=== PATIENT | female | born 1960 | race Caucasian/White ===

== ENCOUNTER → 2019-10-29 16:04 | Outpatient (BNVA) | payer MEDICARE, SELFPAY | PROVIDERS: Family Provider Family Medicine; PCP Family Medicine; Visit Provider Specialist | DX: M25.551 Pain in right hip (principal); G89.29 Other chronic pain | CPT/HCPCS: 73502 ==

== ENCOUNTER → 2019-12-29 11:04 | Outpatient (BNVA) | payer MEDICARE, SELFPAY | PROVIDERS: Family Provider Family Medicine; PCP Family Medicine; Visit Provider Specialist | DX: G35 Multiple sclerosis (principal); M81.0 Age-related osteoporosis without current pathological fracture | CPT/HCPCS: 99214 ==

== ENCOUNTER → 2020-06-16 11:23 | Outpatient (BNVA) | payer MEDICARE, SELFPAY | PROVIDERS: Family Provider Family Medicine; PCP Family Medicine; Visit Provider Podiatrist Foot & Ankle Surgery | DX: S99.921A Unspecified injury of right foot, initial encounter (principal); M21.611 Bunion of right foot; M79.671 Pain in right foot; G35 Multiple sclerosis | CPT/HCPCS: 73630 ==

== ENCOUNTER 2020-06-16 14:25 | Outpatient (CLI) | payer MEDICARE, SELFPAY | END 2020-06-16 14:26 | disposition home or self-care (01) | LOC: SPT 14:25 | PROVIDERS: Family Provider Family Medicine; PCP Family Medicine; Visit Provider Podiatrist Foot & Ankle Surgery | DX: M21.611 Bunion of right foot (principal); M79.671 Pain in right foot; G35 Multiple sclerosis | CPT/HCPCS: L4361 ==

== ENCOUNTER → 2020-06-28 09:46 | Outpatient (BNVA) | payer MEDICARE, SELFPAY | PROVIDERS: Family Provider Family Medicine; PCP Family Medicine; Visit Provider Specialist | DX: G35 Multiple sclerosis (principal); M81.0 Age-related osteoporosis without current pathological fracture | CPT/HCPCS: 99214 ==

== ENCOUNTER → 2021-01-19 10:46 | Outpatient (BNVA) | payer MEDICARE, SELFPAY | PROVIDERS: Family Provider Family Medicine; PCP Family Medicine; Visit Provider Specialist | DX: G35 Multiple sclerosis (principal) | CPT/HCPCS: 99213 ==

== ENCOUNTER 2021-02-17 11:52 | Outpatient (CLI) | payer MEDICARE, SELFPAY ==
--- NOTE | 2021-02-17 12:00 | MM_ITS ---
WS: [id number] BILATERAL DIGITAL SCREENING MAMMOGRAPHY WITH CAD CLINICAL INFORMATION: SCREENING HISTORY: Screening mammogram. No current complaints. COMPARISON: TECHNIQUE: Bilateral CC and MLO views. FINDINGS: Scattered fibroglandular densities bilaterally. No suspicious focal mass, asymmetry, calcifications, or architectural distortion. No evidence of malignancy. Punctate and lucent centered calcifications. Vascular calcification. MM/[place] [id number] IMPRESSION: BI-RADS: 2-Benign FOLLOW UP: 1 Year Follow-up Recommend return to annual screening mammography.
== END 2021-02-17 11:53 | disposition home or self-care (01) ==
LOC: RADSHAW 11:59
PROVIDERS: PCP Family Medicine; Visit Provider Nurse Practitioner
DX: Z12.31 Encounter for screening mammogram for malignant neoplasm of breast (principal)
CPT/HCPCS: 77067

== ENCOUNTER → 2021-10-28 14:51 | Outpatient (BNVA) | payer MEDICARE, SELFPAY | PROVIDERS: PCP Family Medicine; Visit Provider Obstetrics & Gynecology | DX: N81.4 Uterovaginal prolapse, unspecified (principal); N39.3 Stress incontinence (female) (male); Z20.822 Contact with and (suspected) exposure to COVID-19 | CPT/HCPCS: 87635 ==

== ENCOUNTER 2021-11-01 12:55 | Observation (INO) | payer MEDICARE, SELFPAY ==
[2021-10-31 15:44] VITALS: BMI 17.2
[2021-11-01] VITALS (27 sets, daily range): BP systolic 77–149; BP diastolic 42–102; PULSE 65–94; RESP 13–23; TEMP 36.5–36.8; O2SAT 92–100
[2021-11-01] MEDS: acetaminophen 1,000 MG/100 ML PIGGYBACK 400 MG IV (06:39)
[2021-11-01] MEDS: sodium chloride 0.9% 1,000 ML 30 ML IV (06:40)
[2021-11-01] MEDS: phenazopyridine 100 mg Tablet 200 MG PO (06:44)
[2021-11-01] MEDS: CELEcoxib 200 mg Capsule 400 MG PO (06:45)
[2021-11-01] MEDS: gabapentin 300 mg Capsule PO (06:45)
[2021-11-01] MEDS: scopolamine 1.5 Patch 1 PATCH TRANSDERMA (06:46)
[2021-11-01] MEDS: ketorolac 30 mg/mL INJ IVP ×3 (06:54→23:21)
--- NOTE | 2021-11-01 06:54 | ANES.PREANE2 ---
Pre-Anesthetic Assessment Height/Weight: Height 1.68 m Weight 48.534 kg Temp Pulse Resp BP Pulse Ox 97.7 F 72 16 118/68 98 11/01/21 06:15 11/01/21 06:15 11/01/21 06:15 11/01/21 06:15 11/01/21 06:15 Preop Diagnosis: uterine prolapse, cystocele, stress incontinence Operation Date: 11/01/21 07:00 Proposed Procedures p Laparoscopic Assist Vaginal Hysterectomy [id number]/n81.4/n81.10/n39.3(Not Applicable) - Deann Martinez MD s Laparoscopic Salpingo Oophorectomy(Bilateral) - Deann Martinez MD s Anterior Repair(Not Applicable) - Deann Martinez MD s possible sling(Not Applicable) - Deann Martinez MD Was Beta Yuridia taken within 24 hours: N/A Was Clonidine taken within 24 hours: N/A Last intake: Intake Last Liquid Date 10/31/21 Last Liquid Time 18:00 Last Solid Date 10/31/21 Last Solid Time 18:00 Social No alcohol and No tobacco Exam alert, oriented x 3, clear to auscultation bilaterally and regular rate & rhythm Airway Submandibular: within normal limits Cervical ROM: within normal limits Mallampati: Class III Dentition: chipped and false Comments: Comments: False uppers, missing multiple lowers. History/ROS No significant history except as noted Pulmonary None reported METS < 4 Uses walker d/t MS CV/HEM Anemia None reported Hepatic None reported GI None reported Metabolic None reported Musc/skel MS Weak in all extremities Blunted affect Uses walker Motor weakness b/l legs requiring assist device (walker) Anesthetic Plan Anesthesia: Anesthesia Evaluation and General Other: We discussed risk and benefits of general anesthesia including PONV, sore throat (sometimes severe), corneal abrasion, positioning and peripheral nerve injuries, life threatening allergic reaction, post operative ICU admission requiring prolonged intubation, stroke, heart attack, , and rare incidences of recall. Patient consents to proceed with general anesthesia. Risk of > 500 ml blood loss (7ml/kg in children): No Medications/Allergies Home Medications Medication Instructions Recorded Confirmed Last Taken Type alendronate 70 mg tablet (Fosamax) 70 mg PO ONCE 10/29/19 11/01/21 10/01/21 History modafinil 200 mg tablet 200 mg PO QAM #90 tab 05/26/20 11/01/21 10/31/21 Rx POV/3 Wheeled Scooter #1 ea 06/29/20 10/28/21 Unknown Rx citalopram 40 mg tablet See Rx Instructions .ROUTE 01/19/21 11/01/21 10/31/21 Rx .COMPLEX #90 tab tolterodine 2 mg tablet 2 mg PO QDAY PRN #30 tab 01/19/21 11/01/21 11/01/21 Rx baclofen 10 mg tablet See Rx Instructions .ROUTE 05/18/21 11/01/21 10/31/21 Rx .COMPLEX #360 tab dalfampridine 10 mg 10 mg PO BID 30 Days #60 tab 10/28/21 11/01/21 10/31/21 Rx tablet,extended release,12 hr dimethyl fumarate 240 mg 240 mg PO BID 30 Days #60 cap 10/28/21 11/01/21 10/31/21 Rx capsule,delayed release (Tecfidera) Allergies Allergy/AdvReac Type Severity Reaction Status Date / Time Sulfa (Sulfonamide Allergy hives Verified 10/28/21 14:50 Antibiotics) Current Medications Generic Name Dose Route Start Last Admin Trade Name Freq PRN Reason Stop Dose Admin Sodium Chloride 1,000 mls @ 30 mls/hr 11/01/21 06:15 11/01/21 06:40 Sodium Chloride 0.9% IV 11/02/21 06:14 30 mls/hr .Q24H SHELBY Administration PFSH Anesthesia Medical History (Updated 10/31/21 @ 12:22 by Deann Martinez MD) Broken back History of hip fracture Multiple sclerosis Family History Mother Breast cancer Other Thyroid disease Denies family history of Diabetes CAD (coronary artery disease) Clotting disorder Chronic kidney disease (CKD) Bleeding disorder Hypertension Stroke Data Anesthesia : 11/01/21 06:39 11/01/21 06:39 Cardiac Studies: No Data to Display
--- NOTE | 2021-11-01 07:02 | W.PM.OPSUD ---
Surgery/Procedure H&P Update DATE OF PROCEDURE: November 01, 2021 DATE H&P PERFORMED: 10/28/21 H&P UPDATE INFORMATION: I have reviewed H&P completed within last 30 days, I have examined patient prior to procedure and No changes to prior documentation PREOP DIAGNOSIS: uterine prolapse, cystocele, stress incontinence PLANNED PROCEDURE: Operation Date: 11/01/21 07:00 Proposed Procedures p Laparoscopic Assist Vaginal Hysterectomy [id number]/n81.10/n39.3(Not Applicable) - Deann Martinez MD s Laparoscopic Salpingo Oophorectomy(Bilateral) - Deann Martinez MD s Anterior Repair(Not Applicable) - Deann Martinez MD s possible sling(Not Applicable) - Deann Martinez MD Related Problem List Diagnoses (1) Stress incontinence: (2) Uterine prolapse: (3) Cystocele:
[2021-11-01 07:06] LABS: Basophils # 0.1 10^3/uL (0.0-0.1); Basophils % 1.2 %; Eosinophils # 0.1 10^3/uL (0.0-0.8); Eosinophils % 2.1 %; Hematocrit 41.9 % (37.0-47.0); Hemoglobin 14.3 g/dL (11.5-15.3); Lymphocytes # 0.9 10^3/uL (0.8-4.8); Lymphocytes % 21.9 %; Mean Corpuscular HGB Conc 34.1 g/dL (30.0-36.0); Mean Corpuscular Hemoglobin 32.1 pg (28.0-34.0); Mean Corpuscular Volume 93.9 fl (81-99); Mean Platelet Volume 9.6 fL (7.4-10.4); Monocytes # 0.4 10^3/uL (0.2-0.9); Monocytes % 10.5 %; Neutrophils # 2.69 10^3/uL (1.8-7.7); Neutrophils % 63.8 %; Nucleated Red Blood Cells % 0 %; Platelet Count 259 10^3/cmm (130-400); Red Blood Count 4.46 10^6/uL (4.1-5.3); Red Cell Distribution Width 12.4 % (12.1-15.1); White Blood Count 4.2 10^3/uL (4.0-10.0)
[2021-11-01 07:26] LABS: Alanine Aminotransferase 8 U/L (0-33); Albumin Level 4.3 g/dL (3.5-5.2); Alkaline Phosphatase 56 IU/L (35-105); Anion Gap 12.4 (5-19); Aspartate Amino Transferase 16 U/L (0-32); Blood Urea Nitrogen 8 mg/dL (8-23); Calcium 8.7 mg/dL (8.5-10.5); Carbon Dioxide 28 mmol/L (22-29); Chloride 102 mmol/L (98-107); Creatinine Clr Calc Pharmacy 150.8823; Globulin 2.3 g/dL (1.3-4.6); Glomerular Filtration Rate 226.2 mL/min (90-130); Glucose 71 mg/dL (65-115); Osmolality Calculated 285 mOsm/kg (285-295); Potassium 3.4 mmol/L (3.5-5.1); Sodium 139 mmol/L (136-145); Total Bilirubin 0.2 mg/dL (0.15-1.2); Total Protein 6.6 g/dL (6.6-8.7)
[2021-11-01] MEDS: vasopressin 20 unit/mL INJ 4 UNIT INJECTION (08:52)
--- NOTE | 2021-11-01 10:48 | PM.OP ---
Operative Report Date of procedure: November 01, 2021 Pre-op diagnosis: Preop Diagnosis uterine prolapse, cystocele, stress incontinence Post-op diagnosis: same Post-op findings: small uterus, normal appearing tubes and ovaries Procedure done: laparoscopic assisted vaginal hysterectomy with bilateral salpingoophorectomy and mid urethral sling placement Specimens removed/disposition: uterus, bilateral fallopian tubes and ovaries to pathology Surgeon: Deann Martinez Anesthesia: General Estimated blood loss (mL): 100 IV fluids (mL): 1,400 Urine output (mL): 300 Complications: none Brief History: The patient presented for significant pelvic pain and stress incontinence. She was found to have uterine prolapse. She opted to have surgery to relieve her symptoms Procedure: The patient was taken to the operating room where general anesthesia was administered and found to be adequate. She was prepped and draped in the normal sterile fashion in the dorsal lithotomy position in [facility]. A Falcon catheter was placed. A weighted speculum was placed into the vagina and the anterior lip of the cervix was grasped with a single tooth tenaculum. The cervix was atrophic and the pediatric dilators were used to dilate her cervix. As I used the 3 mm dilator, I felt it perforate the uterus. No manipulator was used as the uterus was tiny and wouldn't have been large enough to use the manipulator. A sponge stick was placed instead. The weighted speculum was removed. The gloves were changed and attention was turned to the abdomen. A 5 mm infraumbilical incision was made. Using a 5 mm port with the camera, the port was placed into the abdomen. The abdomen was insufflated. Two low, lateral 5 mm ports were placed on the left and right under direct visualization from the camera. The right tube was grasped and elevated. Using the laparoscopic cautery, the infundibulopelvic ligament was cauterized lateral to the tube and ovary. This was performed the same way on the left. The uteroovarian ligaments as well as the round ligaments were ligated. Attention was then turned to the vaginal portion of the procedure. The weighted speculum was placed into the vagina. The sponge stick was removed. The single tooth tenaculum was removed and replaced with the tata's tenaculum. 10 mL of dilute Pitressin was injected at the vesicovaginal junction. A circumferential incision was made at the vesicovaginal junction and the vaginal mucosa reflected cephalad. The posterior peritoneum was entered sharply with the Metzenbaum scissors and the long weighted speculum replaced. Using the Renetta clamps the uterosacral ligaments were clamped cut and suture-ligated. The anterior peritoneum was entered sharply with the metzenbaum scissors. Then sequentially the uterine arteries and cardinal ligaments were clamped cut and suture-ligated. A single-tooth tenaculum was used to deliver the uterus. The remaining segement of the utero-ovarian ligaments were clamped cut and suture-ligated bilaterally and the specimen was removed. There was good hemostasis with only mild bleeding from the cuff. The peritoneum was closed with a pursestring using 2-0 Vicryl. The vaginal cuff was closed with 0 Vicryl in a running locked pattern incorporating the uterosacral ligaments into the lateral aspects of the vaginal cuff. The Falcon catheter was removed and the cystoscope advanced into the bladder. The patient was given pyridium and bilateral spill was noted. There were no injuries or deficits noted in the bladder. The cystoscope was removed and the Falcon was replaced. Attention was then turned to the sling portion of the surgery. A weighted speculum was placed into the vagina and an Allis clamp was placed approximately 2 cm below the urethra and another placed approximately 3 cm distal from that. An incision was made between the 2. 10 ml of sterile saline was used to hydrodissect the area. The tissue was sharply and bluntly dissected along the pubic ramus bilaterally. The sling was placed on the left first by going through the incision and attaching the sling to the obturator foramen membrane. The right side was performed in a similar fashion, placing the applicator through the incision and attaching to the obturator foramen membrane. The Falcon catheter was removed and the cystoscope advanced into the bladder. There was no mesh noted to be in the bladder. The sling was tightened until it was mid urethra with no tension. There was no leakage with valsalva. The tag of suture was trimmed. The incision was repaired with 2-0 Vicryl in a running locked fashion. Vaginal packing was placed. The abdominal incisions were closed with 4-O vicryl. The patient tolerated the procedure well. Sponge lap and needle counts were correct x3. She was taken to the recovery room in stable condition.
[2021-11-01] MEDS: meperidine 50 mg/mL INJ 12.5 MG IVP ×2 (11:28→11:34)
[2021-11-01] MEDS: ceFAZolin 1,000 MG in sodium chloride 0.9% (plus) 50 ML 100 MG IV ×2 (14:09→21:33)
[2021-11-01] MEDS: dextrose 5%-lactated ringers 1,000 ML 125 ML IV ×2 (14:09→23:22)
--- NOTE | 2021-11-01 15:13 | ANE.PACU2 ---
Inpatient post-anesthesia follow up: Airway intact: Yes Vital signs: Temperature 98.1 F Pulse Rate 78 Respiratory Rate 16 Blood Pressure 94/50 Pulse Oximetry 93 Oxygen Delivery Me thod Room Air Oxygen Flow Rate 3 Fraction of Inspir ed Oxygen Hydration adequate: Yes Nausea and vomiting: No Pain level: 1 Mental status: Baseline
--- NOTE | 2021-11-01 15:37 | PC.NURSE ---
soccer ball size area of blood on chux after pt moved to OB bed. pad placed to monitor vaginal bleeding.
[2021-11-01] MEDS: docusate sodium 100 mg Capsule PO (17:18)
[2021-11-01 20:38] LABS: Basophils % 0.3 %; Eosinophils % 0.2 %; Hematocrit 36.2 % (37.0-47.0); Lymphocytes % 10.7 %; Mean Corpuscular HGB Conc 33.1 g/dL (30.0-36.0); Mean Corpuscular Hemoglobin 32.1 pg (28.0-34.0); Mean Corpuscular Volume 96.8 fl (81-99); Mean Platelet Volume 9.7 fL (7.4-10.4); Monocytes # 0.9 10^3/uL (0.2-0.9); Monocytes % 10.5 %; Neutrophils # 6.95 10^3/uL (1.8-7.7); Neutrophils % 78.1 %; Nucleated Red Blood Cells % 0 %; Platelet Count 231 10^3/cmm (130-400); Red Blood Count 3.74 10^6/uL (4.1-5.3); Red Cell Distribution Width 12.8 % (12.1-15.1); White Blood Count 8.9 10^3/uL (4.0-10.0)
[2021-11-02 04:22] VITALS: BP 98/56; PULSE 79; TEMP 36.6; O2SAT 97
[2021-11-02] MEDS: ketorolac 30 mg/mL INJ IVP (04:45)
[2021-11-02 05:34] LABS: Hematocrit 38.4 % (37.0-47.0); Hemoglobin 12.5 g/dL (11.5-15.3); Mean Corpuscular HGB Conc 32.6 g/dL (30.0-36.0); Mean Corpuscular Hemoglobin 31.8 pg (28.0-34.0); Mean Corpuscular Volume 97.7 fl (81-99); Mean Platelet Volume 9.8 fL (7.4-10.4); Platelet Count 205 10^3/cmm (130-400); Red Blood Count 3.93 10^6/uL (4.1-5.3); Red Cell Distribution Width 12.8 % (12.1-15.1); White Blood Count 7.1 10^3/uL (4.0-10.0)
--- NOTE | 2021-11-02 06:58 | PM.DCS ---
Discharge Providers Date of Admission: 11/01/21 12:59 Date of Discharge: November 02, 2021 Attending Provider at Admission: Deann Martinez MD Attending Provider at Discharge: Deann Martinez MD Primary Care Provider: Angelita Thompson RN, MSN, CPNP Diagnoses at Discharge Discharge Diagnosis (1) Stress incontinence: Status: Acute (2) Uterine prolapse: Status: Acute (3) Cystocele: Status: Acute Reason for Visit Reason for Visit: uterie prolapse, cystocele, stress incontinence Hospital Course Hospital Course The patient was admitted for surgery. She did well postoperatively and was ready for discharge Physical Exam Narrative: EXAM NARRATIVE: The patient is feeling well this morning. She voices no concerns. Her packing and catheter have been removed and she will do a voiding trial prior to discharge Const: COMMON NORMALS: no acute distress, average body habitus, patient oriented x3, no limitations, healthy appearing, alert and well nourished GENERAL APPEARANCE: cooperative, comfortable, well kempt and well developed ORIENTATION/CONSCIOUSNESS: Yes awake, Yes oriented to person, Yes oriented to place and Yes oriented to time Resp: COMMON NORMALS: normal respiratory effort EFFORT & INSPECTION: Yes able to speak in complete sentences GI: COMMON NORMALS: Soft to palpation and non-tender PALPATION: Yes Soft to palpation : COMMON NORMALS: Yes normal external appearance and Yes normal appearance of the vagina Extremity: COMMON NORMALS: no calf tenderness Neuro: COMMON NORMALS: patient oriented x3 SENSORIUM/ORIENTATION: Yes alert, Yes oriented to person, Yes oriented to place and Yes oriented to time Psych: APPEARANCE: Yes well kempt Urinary Catheter Management: Falcon: Cath Placed During This Visit: yes Reason for Continuing Indwelling Catheter: Perioperative Use in Selected Surgeries Urinary Catheter Date of Insertion: 11/01/21 Urinary Catheter Time of Insertion: 08:06 Discharge Data Studies Completed and Pending Pending at discharge Category Date Time Status ES surgery / GI images Routine Exams 11/01/21 06:38 Taken Urine Culture Routine Lab 11/01/21 17:24 Received Pathology: Surgical [PTH] Routine Pth 11/01/21 10:56 Received Laboratory Results WBC 7.1 10^3/uL (4.0-10.0) 11/02/21 05:10 RBC 3.93 10^6/uL (4.1-5.3) L 11/02/21 05:10 Hgb 12.5 g/dL (11.5-15.3) 11/02/21 05:10 Hct 38.4 % (37.0-47.0) 11/02/21 05:10 MCV 97.7 fl (81-99) 11/02/21 05:10 MCH 31.8 pg (28.0-34.0) 11/02/21 05:10 MCHC 32.6 g/dL (30.0-36.0) 11/02/21 05:10 RDW 12.8 % (12.1-15.1) 11/02/21 05:10 Plt Count 205 10^3/cmm (130-400) 11/02/21 05:10 MPV 9.8 fL (7.4-10.4) 11/02/21 05:10 Neut % (Auto) 78.1 % 11/01/21 20:24 Lymph % (Auto) 10.7 % 11/01/21 20:24 Mcculloch % (Auto) 10.5 % 11/01/21 20:24 Eos % (Auto) 0.2 % 11/01/21 20:24 Baso % (Auto) 0.3 % 11/01/21 20:24 Neut # (Auto) 6.95 10^3/uL (1.8-7.7) 11/01/21 20:24 Lymph # (Auto) 1.0 10^3/uL (0.8-4.8) 11/01/21 20:24 Mcculloch # (Auto) 0.9 10^3/uL (0.2-0.9) 11/01/21 20:24 Eos # (Auto) 0.0 10^3/uL (0.0-0.8) 11/01/21 20:24 Baso # (Auto) 0.0 10^3/uL (0.0-0.1) 11/01/21 20:24 Nucleated RBC % (auto) 0 % 11/01/21 20:24 Nucleated RBCs # 0.0 /100WBC 11/01/21 20:24 Sodium 139 mmol/L (136-145) 11/01/21 06:39 Potassium 3.4 mmol/L (3.5-5.1) L 11/01/21 06:39 Chloride 102 mmol/L (98-107) 11/01/21 06:39 Carbon Dioxide 28 mmol/L (22-29) 11/01/21 06:39 Anion Gap 12.4 (5-19) 11/01/21 06:39 BUN 8 mg/dL (8-23) 11/01/21 06:39 Creatinine 0.3 mg/dL (0.5-0.9) L 11/01/21 06:39 GFR Calculation 226.2 mL/min (90-130) H 11/01/21 06:39 Glucose 71 mg/dL (65-115) 11/01/21 06:39 Calculated Osmolality 285 mOsm/kg (285-295) 11/01/21 06:39 Calcium 8.7 mg/dL (8.5-10.5) 11/01/21 06:39 Total Bilirubin 0.2 mg/dL (0.15-1.2) 11/01/21 06:39 AST 16 U/L (0-32) 11/01/21 06:39 ALT 8 U/L (0-33) 11/01/21 06:39 Alkaline Phosphatase 56 IU/L (35-105) 11/01/21 06:39 Total Protein 6.6 g/dL (6.6-8.7) 11/01/21 06:39 Albumin 4.3 g/dL (3.5-5.2) 11/01/21 06:39 Globulin 2.3 g/dL (1.3-4.6) 11/01/21 06:39 Blood Type A Positive 11/01/21 06:39 Rho(D) Type Positive 11/01/21 06:39 Antibody Screen Negative 11/01/21 06:39 Vitals Last Vital Signs Temp 97.9 F 11/02/21 04:22 Pulse 79 11/02/21 04:22 Resp 14 11/01/21 23:27 BP 98/56 11/02/21 04:22 Pulse Ox 97 11/02/21 04:22 Discharge Plan Discharge Patient Disposition: Home Condition: Stable Prescriptions: New ibuprofen 800 mg Tablet 800 mg PO Q8H Qty: 40 0RF hydrocodone-acetaminophen 5-325 mg Tablet 1 tab PO Q4H PRN (Reason: Moderate To Severe Pain) Qty: 30 0RF docusate sodium 100 mg Capsule 100 mg PO BID Qty: 60 0RF Continued alendronate [Fosamax] 70 mg tablet 70 mg PO ONCE 0RF citalopram 40 mg tablet See Rx Instructions .ROUTE .COMPLEX Qty: 90 3RF Dose Instruction: TAKE 1 TABLET EVERY DAY Rx Instructions: TAKE 1 TABLET EVERY DAY tolterodine 2 mg tablet 2 mg PO QDAY PRN (Reason: Bladder Control) Qty: 30 11RF (DME) POV/3 Wheeled Scooter See Rx Instructions .Route .MEDSUPPLY Qty: 1 0RF Rx Instructions: As directed modafinil 200 mg tablet 200 mg PO QAM Qty: 90 1RF baclofen 10 mg tablet See Rx Instructions .ROUTE .COMPLEX Qty: 360 11RF Dose Instruction: TAKE 3 TABLETS BY MOUTH FOUR TIMES A DAY Rx Instructions: TAKE 3 TABLETS BY MOUTH FOUR TIMES A DAY Tecfidera 240 mg capsule,delayed release(DR/EC) 240 mg PO BID 30 Days Qty: 60 3RF dalfampridine 10 mg tablet extended release 12 hr 10 mg PO BID 30 Days Qty: 60 3RF Discharge Orders: Discharge Order (Routine); Ordered 11/02/21 Ordered By: Deann Martinez Patient Instructions: Opioid Safety Discharge Attestations Time Spent in Discharge Care*: less than 30 min Quality Metrics Clinical Quality Measures [ No reported AMI, CVA or VTE this stay] Coding Level of Care Code Acute Chg FW DC note Diagnoses Stress incontinence N39.3 Uterine prolapse N81.4 Cystocele
[2021-11-02] MEDS: HYDROcodone-acetaminophen 5-325 mg Tablet PO (09:03)
[2021-11-02] MEDS: docusate sodium 100 mg Capsule PO (09:04)
--- NOTE | 2021-11-02 10:15 | PC.NURSE ---
Patient voided in stool, minimal amount in urine hat. Minimal amount in stool, barely discolored the stool water. Patient feels the urge to void, but unable to void. This nurse encouraged the patient to avoid bearing down and straining.
[2021-11-02 11:00] VITALS: BP 118/67; PULSE 76; RESP 18; TEMP 36.9; O2SAT 98
== END 2021-11-02 11:10 | disposition home or self-care (01) ==
LOC: OBGYN 12:56
PROVIDERS: Admitting Provider Obstetrics & Gynecology; PCP Nurse Practitioner Family; Visit Provider Obstetrics & Gynecology
PROC: 0UT9FZZ Resection of Uterus, Via Natural or Artificial Opening With Percutaneous Endoscopic Assistance (ICD-10-PCS; CPT 57288; principal; 2021-11-01 07:00)
PROC: (CPT 58661; 2021-11-01 07:00)
PROC: (CPT 57288; 2021-11-01 07:00)
PROC: 0TJB8ZZ Inspection of Bladder, Via Natural or Artificial Opening Endoscopic (ICD-10-PCS; CPT 52000; 2021-11-01 07:00)
DX: N39.3 Stress incontinence (female) (male) (principal); N81.4 Uterovaginal prolapse, unspecified; G35 Multiple sclerosis
CPT/HCPCS: 57288; 58552; 36415; 51702; 51798; 80053; 85025; 85027; 86850; 86900; 87086; 88305; 96365; 96374; C1713; G0378; J0690; J1100; J1200; J1885; J1940; J2175; J2370; J2405; J2704; J3010; J3490; J7030

== ENCOUNTER → 2021-11-14 16:24 | Outpatient (BNVA) | payer MEDICARE, SELFPAY | PROVIDERS: PCP Nurse Practitioner Family; Visit Provider Obstetrics & Gynecology | DX: R32 Unspecified urinary incontinence (principal) | CPT/HCPCS: 81000 ==

== ENCOUNTER → 2021-12-12 14:25 | Outpatient (BNVA) | payer MEDICARE, SELFPAY | PROVIDERS: PCP Nurse Practitioner Family; Visit Provider Obstetrics & Gynecology | DX: R39.15 Urgency of urination (principal); R33.9 Retention of urine, unspecified; R35.0 Frequency of micturition | CPT/HCPCS: 81000 ==

== ENCOUNTER → 2021-12-21 16:06 | Outpatient (BNVA) | payer MEDICARE, SELFPAY | PROVIDERS: PCP Nurse Practitioner Family; Referring Provider Obstetrics & Gynecology; Visit Provider Nurse Practitioner Family | DX: N39.41 Urge incontinence (principal); N39.0 Urinary tract infection, site not specified | CPT/HCPCS: 81003; 87086 ==

== ENCOUNTER → 2022-02-20 10:50 | Outpatient (BNVA) | payer MEDICARE, SELFPAY | PROVIDERS: PCP Nurse Practitioner Family; Visit Provider Specialist | DX: G35 Multiple sclerosis (principal); N39.46 Mixed incontinence; Z91.81 History of falling | CPT/HCPCS: 99213; 99214 ==

== ENCOUNTER → 2022-03-23 09:47 | Outpatient (BNVA) | payer MEDICARE, SELFPAY | PROVIDERS: PCP Nurse Practitioner Family; Visit Provider Specialist | DX: Z71.89 Other specified counseling (principal); M70.61 Trochanteric bursitis, right hip; M70.62 Trochanteric bursitis, left hip | CPT/HCPCS: 20610; J1100; J2795; J3301 ==

== ENCOUNTER 2022-05-18 14:48 | Outpatient (CLI) | payer MEDICARE, SELFPAY ==
--- NOTE | 2022-05-18 14:57 | XR_ITS ---
WS: [id number] SCREENING DEXA SCAN [facility] CLINICAL INFORMATION: POSTMENOPAUSAL COMPARISON: FINDINGS: The L1-L4 bone mineral density measures 0.881 g/cm2. This corresponds to a T score score of -2.5 and Z score of -0.4. Right femoral neck bone mineral density measures 0.521. This corresponds to a T score -3.9 and Z scor e of -2.3. XR/XR DEXA axial skeleton* [id number] IMPRESSION: Osteoporosis in the lumbar spine and RIGHT femoral neck. Patient's FRAX calculated 10 year probability for major osteoporotic fracture i s 26.6 % and osteoporotic hip fracture is 11.6%. Bone mineral density of the lumbar spine has decreased -5.5% since 2018. Bone mineral density in the RIGHT femoral neck has decreased -4.6% since 2018
== END 2022-05-18 14:49 | disposition home or self-care (01) ==
LOC: RAD 14:49
PROVIDERS: PCP Nurse Practitioner Family; Visit Provider Nurse Practitioner
DX: Z78.0 Asymptomatic menopausal state (principal); M81.0 Age-related osteoporosis without current pathological fracture
CPT/HCPCS: 77080

== ENCOUNTER → 2022-06-29 10:11 | Outpatient (BNVA) | payer MEDICARE, SELFPAY | PROVIDERS: PCP Nurse Practitioner Family; Visit Provider Specialist | DX: M70.61 Trochanteric bursitis, right hip (principal); M70.62 Trochanteric bursitis, left hip | CPT/HCPCS: 20610; J1100; J2795; J3301 ==

== ENCOUNTER 2022-07-18 08:15 | Emergency (ER) | payer MEDICARE, SELFPAY ==
[2022-07-18 08:21] VITALS: BP 130/64; PULSE 86; RESP 14; TEMP 36.8; O2SAT 96; BMI 15.3
[2022-07-18 08:27] VITALS: BP 141/89; PULSE 81; RESP 16; O2SAT 95
--- NOTE | 2022-07-18 08:35 | W.ED.FEMALGU ---
HPI - Female Genitourinary General: Chief complaint: Urogenital-Female Stated complaint: cant urinate Time Seen by Provider: 07/18/22 08:16 Source: patient Mode of arrival: ambulatory History of Present Illness: 62-year-old female with a history of neurogenic bladder from MS. She has been having increasing difficulty with urinary retention last several days and has not urinated in the last 12 hours. Prior to that she could tell she was not emptying her bladder completely. She has not been doing any self caths. I have considered seen urology in the past but have not been able to do so today. MD elicited complaint: difficulty urinating Pertinent past history: other (Multiple sclerosis) Onset (ago): day(s) Severity: moderate Female Urogenital Radiation: Suprapubic Quality of pain: cramping Consistency: constant Urinary symptoms: Difficulty Urinating Exacerbating factors: none Relieving factors: urination Associated symptoms: Deny abdominal pain, short of breath, fevers/chills, headache(s), nausea, rash, seizures, syncope or weakness Treatment prior to arrival: none Review of Systems Const: Denies: fever(s), chills, body aches, change in appetite, fatigue or malaise ENMT: Denies: throat pain, ear or mastoid pain, nasal discharge or nasal congestion Card: Denies: syncope Resp: Denies: dyspnea, productive cough or non-productive cough GI: Denies: abdominal pain or nausea : Denies: flank pain, difficulty voiding, dysuria, urinary frequency or urinary urgency Skin/Breast: Denies: rash or pruritus Neuro: Denies: headache(s) PFSH ED PFSH: Medical History Broken back History of hip fracture Multiple sclerosis Recurrent UTI Urgency incontinence Family History Mother Breast cancer Father , AT AGE 63 Acquired scoliosis Other Thyroid disease Social History Smoking and tobacco status: never smoked Alcohol intake: current Alcohol intake frequency: few times a month Marital status: Current occupational status: disabled History of recent travel: No Physical Exam Const: GENERAL APPEARANCE: cooperative and comfortable ORIENTATION/CONSCIOUSNESS: Yes awake, Yes oriented to person, Yes oriented to place and Yes oriented to time HENMT: COMMON NORMALS: normocephalic, atraumatic and hearing grossly normal bilaterally HEAD & SCALP: normocephalic and atraumatic Resp: COMMON NORMALS: normal respiratory effort, No retractions, No use of accessory muscles and clear to auscultation bilaterally AUSCULTATION: clear to auscultation bilaterally Cardio: COMMON NORMALS: regular rate, regular rhythm and No murmurs present (Cardio) RATE: regular rate RHYTHM: regular rhythm GI: COMMON NORMALS: No hepatosplenomegaly present AUSCULTATION: Yes normoactive bowel sounds PALPATION: Yes Tenderness to palpation present (GI) (Suprapubic), No Guarding due to palpation present (GI) and Yes No hepatosplenomegaly present OTHER: Bladder palpable in the suprapubic area to the level just inferior to the umbilicus Extremity: COMMON NORMALS: normal to inspection, capillary refill normal, no clubbing, cyanosis or edema, no calf tenderness and no pedal edema Neuro: SENSORIUM/ORIENTATION: Yes oriented to person, Yes oriented to place and Yes oriented to time Skin: COMMON NORMALS: no rashes or lesions noted GENERAL SKIN EXAM: no rashes or lesions noted Course Vital Signs: Vital signs: Vital Signs Temperature 98.2 F 07/18/22 08:21 Pulse Rate 81 07/18/22 10:30 Respiratory Rate 16 07/18/22 10:30 Blood Pressure 118/70 07/18/22 10:30 Pulse Oximetry 95 07/18/22 10:30 Oxygen Delivery Me thod 07/18/22 09:33 MDM - Female Medical Decision Making Complete relief of symptoms after placement of the catheter UA is unremarkable. We will discharge patient home set up for outpatient follow-up with urology likely she will need to begin self cathing we did leave the catheter in place with a leg bag for now until she sees urology. Concerned about how it we will go with her self cathing and I think it would be better to have that set up through urology than trying to initiated in the emergency room. Medical Records I reviewed the patient's medical records. Lab Data I reviewed the patient's lab results. : 07/18/22 08:34 07/18/22 08:34 Laboratory Results WBC 11.0 10^3/uL (4.0-10.0) H 07/18/22 08:34 RBC 4.56 10^6/uL (4.1-5.3) 07/18/22 08:34 Hgb 14.8 g/dL (11.5-15.3) 07/18/22 08:34 Hct 44.1 % (37.0-47.0) 07/18/22 08:34 MCV 96.7 fl (81-99) 07/18/22 08:34 MCH 32.5 pg (28.0-34.0) 07/18/22 08:34 MCHC 33.6 g/dL (30.0-36.0) 07/18/22 08:34 RDW 12.2 % (12.1-15.1) 07/18/22 08:34 Plt Count 241 10^3/cmm (130-400) 07/18/22 08:34 MPV 9.1 fL (7.4-10.4) 07/18/22 08:34 Neut % (Auto) 86.5 % 07/18/22 08:34 Lymph % (Auto) 5.2 % 07/18/22 08:34 [place] % (Auto) 7.4 % 07/18/22 08:34 Eos % (Auto) 0.1 % 07/18/22 08:34 Baso % (Auto) 0.4 % 07/18/22 08:34 Neut # (Auto) 9.56 10^3/uL (1.8-7.7) H 07/18/22 08:34 Lymph # (Auto) 0.6 10^3/uL (0.8-4.8) L 07/18/22 08:34 [place] # (Auto) 0.8 10^3/uL (0.2-0.9) 07/18/22 08:34 Eos # (Auto) 0.0 10^3/uL (0.0-0.8) 07/18/22 08:34 Baso # (Auto) 0.0 10^3/uL (0.0-0.1) 07/18/22 08:34 Nucleated RBC % (auto) 0 % 07/18/22 08:34 Nucleated RBCs # 0.0 /100WBC 07/18/22 08:34 Sodium 136 mmol/L (136-145) 07/18/22 08:34 Potassium 4.3 mmol/L (3.5-5.1) 07/18/22 08:34 Chloride 98 mmol/L (98-107) 07/18/22 08:34 Carbon Dioxide 28 mmol/L (22-29) 07/18/22 08:34 Anion Gap 14.3 (5-19) 07/18/22 08:34 BUN 15 mg/dL (8-23) 07/18/22 08:34 Creatinine 0.7 mg/dL (0.5-0.9) 07/18/22 08:34 GFR Calculation 84.8 mL/min (90-130) L 07/18/22 08:34 Glucose 129 mg/dL (65-115) H 07/18/22 08:34 Calculated Osmolality 285 mOsm/kg (285-295) 07/18/22 08:34 Calcium 10.1 mg/dL (8.5-10.5) 07/18/22 08:34 Urine Color Yellow (Yellow) 07/18/22 08:56 Urine Appearance Clear (CLEAR) 07/18/22 08:56 Urine pH 8 (5-7) H 07/18/22 08:56 Ur Specific [place] 1.005 (1.005-1.030) 07/18/22 08:56 Urine Protein Neg (Negative) 07/18/22 08:56 Urine Glucose (UA) Norm (Normal) 07/18/22 08:56 Urine Ketones Negative (Negative) 07/18/22 08:56 Urine Blood Neg (Negative) 07/18/22 08:56 Urine Nitrate Negative (Negative) 07/18/22 08:56 Urine Bilirubin Neg (Negative) 07/18/22 08:56 Prot Sulfosalicylic Acd Negative (Negative) 07/18/22 08:56 Urine Urobilinogen Norm mg/dL (Negative) 07/18/22 08:56 Ur Leukocyte Esterase Negative (Negative) 07/18/22 08:56 Discharge Plan Discharge Patient Disposition: Home Clinical Impression: Acute urinary retention, Multiple sclerosis, Neurogenic bladder Condition: Stable Prescriptions: No Action alendronate [Fosamax] 70 mg tablet 70 mg PO ONCE (DME) POV/3 Wheeled Scooter See Rx Instructions .Route .MEDSUPPLY Qty: 1 0RF Rx Instructions: As directed (DME) Catheter and Falcon Bag See Rx Instructions .Route .MEDSUPPLY Qty: 1 0RF Rx Instructions: As directed baclofen 10 mg tablet See Rx Instructions .ROUTE .COMPLEX Qty: 360 5RF Dose Instruction: TAKE 3 TABLETS BY MOUTH FOUR TIMES A DAY Rx Instructions: TAKE 3 TABLETS BY MOUTH FOUR TIMES A DAY citalopram 40 mg tablet See Rx Instructions .ROUTE .COMPLEX Qty: 90 1RF Dose Instruction: TAKE 1 TABLET EVERY DAY Rx Instructions: TAKE 1 TABLET EVERY DAY tolterodine 2 mg tablet 2 mg PO QDAY PRN (Reason: Bladder Control) Qty: 30 5RF nitrofurantoin monohyd/m-cryst [Macrobid] 100 mg capsule 100 mg PO BID Qty: 30 2RF Rx Instructions: must administer with a meal/food modafinil 200 mg tablet 200 mg PO QAM Qty: 90 1RF dalfampridine 10 mg tablet extended release 12 hr 10 mg PO BID 30 Days Qty: 60 5RF Tecfidera 240 mg capsule,delayed release(DR/EC) 240 mg PO BID 30 Days Qty: 60 5RF Discharge Orders: Discharge ED (Routine); Ordered 07/18/22 Ordered By: Jonathan Canseco Discharge Diet: Usual diet Discharge Activity: Increase activity as tolerated Patient Instructions: Opioid Safety, Pain Management Activity Restrictions/Additional Instructions: specialist managers will make arrangements for you to follow-up with Dr. Bronson Coding Level of Care Code ED Driver Service Technician for Marlen Fwd Exam Detailed
[2022-07-18 08:40] LABS: Basophils % 0.4 %; Eosinophils % 0.1 %; Hematocrit 44.1 % (37.0-47.0); Hemoglobin 14.8 g/dL (11.5-15.3); Lymphocytes # 0.6 10^3/uL (0.8-4.8); Lymphocytes % 5.2 %; Mean Corpuscular HGB Conc 33.6 g/dL (30.0-36.0); Mean Corpuscular Hemoglobin 32.5 pg (28.0-34.0); Mean Corpuscular Volume 96.7 fl (81-99); Mean Platelet Volume 9.1 fL (7.4-10.4); Monocytes # 0.8 10^3/uL (0.2-0.9); Monocytes % 7.4 %; Neutrophils # 9.56 10^3/uL (1.8-7.7); Neutrophils % 86.5 %; Nucleated Red Blood Cells % 0 %; Platelet Count 241 10^3/cmm (130-400); Red Blood Count 4.56 10^6/uL (4.1-5.3); Red Cell Distribution Width 12.2 % (12.1-15.1)
[2022-07-18 09:02] LABS: Anion Gap 14.3 (5-19); Blood Urea Nitrogen 15 mg/dL (8-23); Calcium 10.1 mg/dL (8.5-10.5); Carbon Dioxide 28 mmol/L (22-29); Chloride 98 mmol/L (98-107); Glomerular Filtration Rate 84.8 mL/min (90-130); Glucose 129 mg/dL (65-115); Osmolality Calculated 285 mOsm/kg (285-295); Potassium 4.3 mmol/L (3.5-5.1); Sodium 136 mmol/L (136-145)
[2022-07-18 09:07] LABS: Add Urine Microscopic? NO
[2022-07-18 09:08] LABS: Charge for UA Resulting for Rev
[2022-07-18 09:33] VITALS: BP 115/67; PULSE 82; RESP 16; O2SAT 95
[2022-07-18 09:37] LABS: Urine Appearance Clear (CLEAR); Urine Color Yellow (Yellow)
[2022-07-18 09:38] LABS: Bilirubin Urine Neg (Negative); Blood Urine Neg (Negative); Glucose Urine UA Norm (Normal); Ketones Urine Negative (Negative); Leukocyte Esterase Urine Negative (Negative); Nitrate Urine Negative (Negative); Protein Urine Neg (Negative); Specific Gravity, Urine 1.005 (1.005-1.030); Sulfosalicylic Acid Urine Negative (Negative); Urobilinogen Urine Norm (Negative); pH Urine 8 (5-7)
[2022-07-18 10:30] VITALS: BP 118/70; PULSE 81; RESP 16; O2SAT 95
--- NOTE | 2022-07-18 15:26 | DCPLANNER ---
Addendum entered by Amalia Thompson 07/21/22 11:15: digital project manager received the following message from the ortho clinic regarding follow up appointment: Spoke with patient and she would like this referral sent to a Urologist in [place], [place]. Thank you Original Note: digital project manager had message to schedule a follow up appointment for patient with urology. digital project manager sent patients information to the front office staff at urology. Patients information will be printed and reviewed. Clinic will call patient with appointment information.
== END 2022-07-18 10:32 | disposition home or self-care (01) ==
PROVIDERS: Emergency Provider Family Medicine; PCP Nurse Practitioner Family
DX: N31.9 Neuromuscular dysfunction of bladder, unspecified (principal); R33.9 Retention of urine, unspecified; G35 Multiple sclerosis
CPT/HCPCS: 51702; 80048; 81003; 85025; 99283

== ENCOUNTER → 2022-08-23 10:25 | Outpatient (BNVA) | payer MEDICARE, SELFPAY | PROVIDERS: PCP Nurse Practitioner Family; Visit Provider Specialist | DX: G35 Multiple sclerosis (principal); R63.4 Abnormal weight loss; Z68.1 Body mass index [BMI] 19.9 or less, adult | CPT/HCPCS: 99214 ==

== ENCOUNTER → 2022-09-28 09:54 | Outpatient (BNVA) | payer MEDICARE, SELFPAY | PROVIDERS: PCP Nurse Practitioner Family; Visit Provider Specialist | DX: M70.62 Trochanteric bursitis, left hip (principal); M70.61 Trochanteric bursitis, right hip; Z71.89 Other specified counseling | CPT/HCPCS: 20610; J1100; J2795; J3301 ==

== ENCOUNTER 2024-10-24 12:02 | Emergency (ER) | payer OTHER, SELFPAY ==
[2024-10-24 12:29] VITALS: PULSE 73; RESP 18; TEMP 37; O2SAT 99; BMI 13.7
[2024-10-24 12:35] VITALS: BP 97/60; PULSE 77; RESP 18; TEMP 37; O2SAT 95
--- NOTE | 2024-10-24 14:40 | CT_ITS ---
WS: [id number] CT PELVIS NONCONTRAST HISTORY: fall, cannot walk TECHNIQUE: Contiguous imaging is performed of the pelvis without contrast. Coronal and sagittal refor mats are reviewed. All CT scans at [facility] use at least one of these dose optimization mari hniques: automated exposure control; mA and/or kV adjustment per patient size (includes targeted exam s where dose is matched to clinical indication); or iterative reconstruction. DLP: 269.19 mGy.cm COMPARISON: None available. Nondisplaced sacral fracture involving the third segment. No additional fractures are identified with in the sacrum. Bones are osteopenic. Normal appearance of the SI joints. Prior LEFT hip arthroplasty. There is severe constipation with tortuosity of the visualized colon through the pelvis. Urinary blad yanet is distended. No free fluid and no adenopathy. CT/CT bony pelvis [id number] IMPRESSION: Nondisplaced fracture involving the third segment of the sacrum. Otherwise oste openia. No additional fractures are identified.
--- NOTE | 2024-10-24 14:41 | ED_ITS ---
HPI - Back Pain/Injury 2 General: Chief Complaint: Back Pain/Injury Stated Complaint: pelvic pain Time Seen by Provider: 10/24/24 14:16 Source: patient and family Mode of arrival: wheelchair Limitations: no limitations History of Present Illness: Patient is a nice 64-year-old female presents to ED today stating I think I broke my pelvis . She states she had a trip and fall on 10/13 and fell directly onto her back/buttocks. She states since the fall she has had pain centered around her left hip and pelvis. She reportedly had x-rays performed at [place] yesterday but has not heard these results. Patient states she was able to walk following the fall but pain has continued to progress and she is now not been able to walk over the past 2 days. She has MS and cannot walk without the use of her walker at baseline. She denies any other injuries or complaints at this time. MD elicited complaint: other (L hip/pelvis pain) Pertinent past history: recent trauma Onset (ago): day(s) Timing: constant Severity: severe Location: left lower back (hip/pelvis) Radiation: none Exacerbating factors: movement and walking Relieving factors: none Context: fall Associated symptoms: Reports no associated symptoms and difficulty walking; Deny abdominal pain, chills, dysuria, fatigue or fever(s) Work related injury: No Related Data Home Medications Medication Instructions Recorded Confirmed alendronate 70 mg tablet (Fosamax) 70 mg PO ONCE 10/29/19 08/20/24 Previous Rx's Medication Instructions Recorded POV/3 Wheeled Scooter #1 ea 06/29/20 Catheter and Brush Bag #1 ea 08/23/22 tolterodine 2 mg tablet 2 mg PO QDAY PRN Bladder Control 08/29/23 #30 tabs celecoxib 200 mg capsule (Celebrex) 200 mg PO DAILY #90 caps 05/13/24 citalopram 40 mg tablet See Rx Instructions .Route 08/20/24 .COMPLEX #90 tabs dalfampridine 10 mg 10 mg PO BID #180 tabs 08/20/24 tablet,extended release,12 hr dimethyl fumarate 240 mg See Rx Instructions .Route 09/05/24 capsule,delayed release .COMPLEX #90 caps baclofen 20 mg tablet 20 mg .Route .COMPLEX 90 days #450 09/10/24 tabs modafinil 200 mg tablet 400 mg (2 x 200 mg) PO QAM #60 tabs 09/10/24 hydrocodone 5 mg-acetaminophen 325 0.5 - 1 tab PO .q 4-6 PRN pain #20 10/24/24 mg tablet tabs Allergies Allergy/AdvReac Type Severity Reaction Status Date / Time Sulfa (Sulfonamide Allergy hives Verified 08/20/24 11:45 Antibiotics) Review of Systems 2 Const: Denies: fever(s), chills, body aches, fatigue or malaise Card: Denies: chest pain Resp: Denies: dyspnea GI: Denies: abdominal pain : Denies: flank pain or dysuria Musc: Reports: joint pain; Denies: neck pain, extremity pain, extremity swelling or joint swelling Neuro: Reports: difficulty walking; Denies: numbness in extremities, weakness in extremities or sensory changes PFSH ED 2 PFSH: Medical History Recurrent UTI Urgency incontinence Broken back Multiple sclerosis History of hip fracture Family History Mother Breast cancer Father , AT AGE 63 Acquired scoliosis Other Thyroid disease Social History Smoking and tobacco/nicotine status: never used tobacco/nicotine Alcohol intake: current Alcohol intake frequency: few times a month Substance/Drug Use: never Marital status: Current occupational status: disabled Physical Exam 2 Const: COMMON NORMALS: no acute distress, average body habitus, patient oriented x3, no limitations and alert NUTRITIONAL APPEARANCE: underweight ORIENTATION/CONSCIOUSNESS: Yes awake, Yes oriented to person, Yes oriented to place and Yes oriented to time Neck/C-Spine: COMMON NORMALS: full ROM CERVICAL SPINE: Yes cervical ROM normal and No Cervical spine tenderness : COMMON NORMALS: Yes no CVA tenderness BLADDER/KIDNEY EXAM: Yes no CVA tenderness Back/Pelvis: COMMON NORMALS: no CVA tenderness, thoracic and lumbar spine normal to inspection, no thoracic nor lumbar tenderness, thoraco-lumbar ROM normal and straight leg raise negative bilaterally BACK IMAGE (FEMALE): 1. TTP Extremity: COMMON NORMALS: normal to inspection, full ROM and capillary refill normal GENERAL: Yes normal exam except as noted Neuro: COMMON NORMALS: patient oriented x3, moves all extremities, no focal motor deficits and no sensory deficits noted SENSORIUM/ORIENTATION: Yes alert, Yes oriented to person, Yes oriented to place and Yes oriented to time GAIT: Yes Unable to assess gait Course 2 Vital Signs: Vital signs: Vital Signs Temperature 98.6 F 10/24/24 12:35 Pulse Rate 77 10/24/24 12:35 Respiratory Rate 18 10/24/24 12:35 Blood Pressure 97/60 10/24/24 12:35 Pulse Oximetry 95 10/24/24 12:35 Oxygen Delivery Me thod Room Air 10/24/24 12:35 MDM - Back Pain/Injury Medical Decision Making Patient has a nondisplaced fracture involving her sacrum. This is non-surgical. Patient normally uses a walker at baseline due to her MS. states because of her MS/neurogenic bladder he often has to perform catheterization-he states over the past two days he has not been able to do this because patient's pain does not allow her to lie flat to allow him. They are requesting brush. Patient has been offered admission to the hospital and/or with plan for admission into a alf facility but she adamantly refuses. She would like to go home. They want to the Brush catheter and to follow up with her primary care provider next week. I will also have him see Dr. Haney. She was given hydrocodone pain medication. Patient states she already has a walker, wheelchair, and bedside commode at home. Strict return ED precautions discussed. Medical Records I reviewed the patient's medical records. Labs Radiology Impressions Pelvis CT 10/24/24 14:40 IMPRESSION: Nondisplaced fracture involving the third segment of the sacrum. Otherwise osteopenia. No additional fractures are identified. All radiology interpretation(s) finalized by discharge Discharge Plan Discharge Patient Disposition: Home Clinical Impression: Closed sacral fracture Qualifiers: Encounter type: initial encounter Zone of sacrum fracture: unspecified portion of sacrum Qualified Code(s): S32.10XA - Unspecified fracture of sacrum, initial encounter for closed fracture Condition: Stable Prescriptions: New hydrocodone-acetaminophen 5-325 mg tablet 0.5 - 1 tab PO .q 4-6 PRN (Reason: pain) Qty: 20 0RF No Action alendronate [Fosamax] 70 mg tablet 70 mg PO ONCE (DME) POV/3 Wheeled Scooter See Rx Instructions .Route .MEDSUPPLY Qty: 1 0RF Rx Instructions: As directed tolterodine 2 mg tablet 2 mg PO QDAY PRN (Reason: Bladder Control) Qty: 30 5RF dalfampridine 10 mg tablet extended release 12 hr 10 mg PO BID Qty: 180 3RF citalopram 40 mg tablet See Rx Instructions .ROUTE .COMPLEX Qty: 90 3RF Dose Instruction: TAKE 1 TABLET EVERY DAY Rx Instructions: TAKE 1 TABLET EVERY DAY (DME) Catheter and Brush Bag See Rx Instructions .Route .MEDSUPPLY Qty: 1 0RF Rx Instructions: As directed celecoxib [Celebrex] 200 mg capsule 200 mg PO DAILY Qty: 90 0RF dimethyl fumarate 240 mg capsule,delayed release(DR/EC) See Rx Instructions .ROUTE .COMPLEX Qty: 90 3RF Dose Instruction: TAKE 1 CAPSULE BY MOUTH TWICE A DAY Rx Instructions: TAKE 1 CAPSULE BY MOUTH TWICE A DAY modafinil 200 mg tablet 400 mg PO QAM Qty: 60 5RF baclofen 20 mg tablet 20 mg .ROUTE .COMPLEX 90 Days Qty: 450 3RF Rx Instructions: 4 times a day and 2 at bedtime Discharge Orders: Discharge ED (Routine); Ordered 10/24/24 Ordered By: Nessa Guevara Referrals: Evelia Flores MD [Primary Care Provider] - Patient Instructions: Brush Catheter Care, Brush Catheter Placement and Care (ED), Sacral Fracture (ED), How to Change a Catheter Drainage Bag (DC) Activity Restrictions/Additional Instructions: As we discussed, you were found to have a sacral fracture. We will have you follow-up with Dr. Haney-our orthopedic spinal specialist. Case management should reach out to you shortly to help set you up with this follow-up appointment. You have been offered admission to the hospital and admission into a alf facility but you have adamantly declined. Because of your MS and neurogenic bladder, you requested Brush catheterization-this was performed prior to discharge. I would like you to follow-up with your primary care provider next week. I have written you for hydrocodone you may use for severe pain. Do not take this along with your Tylenol with Codeine. You need to return to the emergency department for any further concerns you may have. Coding Level of Care Code ED Fretted String Instrument Repairer for Marlen Barba
[2024-10-24] MEDS: acetaminophen-codeine 300-30mg Tablet 1 TAB PO (14:53)
[2024-10-24 17:07] VITALS: BP 132/78; PULSE 74; O2SAT 98
--- NOTE | 2024-10-27 07:15 | DCPLANNER ---
messaged ortho for er f/u
== END 2024-10-24 17:07 | disposition home or self-care (01) ==
PROVIDERS: Emergency Provider Physician Assistant; PCP Specialist
DX: S32.10XA Unspecified fracture of sacrum, initial encounter for closed fracture (principal); W19.XXXA Unspecified fall, initial encounter
CPT/HCPCS: 51702; 72192; 99284

== ENCOUNTER → 2024-10-31 10:36 | Outpatient (BNVA) | payer OTHER, SELFPAY | PROVIDERS: PCP Specialist; Visit Provider Specialist | DX: M70.61 Trochanteric bursitis, right hip (principal); M70.62 Trochanteric bursitis, left hip; Z71.89 Other specified counseling | CPT/HCPCS: 20610; J1100; J2795; J3301 ==

== ENCOUNTER → 2024-11-06 14:48 | Outpatient (BNVA) | payer OTHER, SELFPAY | PROVIDERS: PCP Specialist; Visit Provider Orthopaedic Surgery | DX: S32.10XA Unspecified fracture of sacrum, initial encounter for closed fracture (principal); S32.2XXA Fracture of coccyx, initial encounter for closed fracture; X58.XXXA Exposure to other specified factors, initial encounter | CPT/HCPCS: 72220; 99203 ==

== ENCOUNTER → 2024-12-04 13:51 | Outpatient (BNVA) | payer OTHER, SELFPAY | PROVIDERS: PCP Specialist; Visit Provider Orthopaedic Surgery | DX: S32.2XXA Fracture of coccyx, initial encounter for closed fracture (principal); X58.XXXA Exposure to other specified factors, initial encounter | CPT/HCPCS: 72220; 99203 ==

== ENCOUNTER → 2025-01-30 09:36 | Outpatient (BNVA) | payer OTHER, SELFPAY | PROVIDERS: PCP Specialist; Visit Provider Specialist | DX: M70.61 Trochanteric bursitis, right hip (principal); M70.62 Trochanteric bursitis, left hip | CPT/HCPCS: 20610; J1100; J2795; J3301; J9999 ==

== ENCOUNTER → 2025-05-15 09:34 | Outpatient (BNVA) | payer OTHER, SELFPAY | PROVIDERS: PCP Specialist; Visit Provider Specialist | DX: M70.61 Trochanteric bursitis, right hip (principal); M70.62 Trochanteric bursitis, left hip | CPT/HCPCS: 20610; J1100; J2795; J3301; J9999 ==

== ENCOUNTER → 2025-08-10 09:04 | Outpatient (BNVA) | payer OTHER, SELFPAY | PROVIDERS: PCP Specialist; Visit Provider Specialist | DX: G35.D Multiple sclerosis, unspecified (principal) | CPT/HCPCS: 99214 ==

== ENCOUNTER → 2025-08-14 10:12 | Outpatient (BNVA) | payer OTHER, SELFPAY | PROVIDERS: PCP Specialist; Visit Provider Specialist | DX: M70.61 Trochanteric bursitis, right hip (principal); M70.62 Trochanteric bursitis, left hip | CPT/HCPCS: 20610; J1100; J2795; J3301; J9999 ==